=== PATIENT | female | born 1955 | race American Indian/Alaskan Native ===

== ENCOUNTER → 2025-08-19 | Outpatient (CLI) | payer MEDICARE, MEDICAID, SELFPAY ==
--- NOTE | 2025-08-19 16:30 | XR_ITS ---
Examination: CT abdomen and pelvis without contrast. Coronal 3-D reconstructions. Sagittal 2-D reconstructions. Date and time of exam:August 19, 2025, 1633 hrs. Indications: Heartburn and gastroesophageal reflux 10 years, comparison August 07, 2016 CTDI: vol (mGy): 4.32 DLP: (mGycm): 226 Technique: Axial images of the abdomen have been obtained, 3 mm slice thickness Intravenous contrast material has not been administered. Low dose protocols were performed. One or more of the following dose reduction techniques were used; automated exposure control, adjustment of the mA and/or KV according to patient size, use of iterative reconstruction technique. Findings: Pulmonary fibrosis pattern of the lung bases with dilated bronchi in the lower lung zones No visualized liver or splenic lesion Gallbladder is not visualized No pancreatic mass Bilateral renal calculi in the 1 to 4 mm range with severe right moderate left renal scar formation No hydronephrosis or ureteral calculi Aorta normal size No pericecal inflammatory change No bowel obstruction No diverticulitis Urinary bladder wall thickening up to 8 mm Moderate osteopenia Impression: Severe pulmonary fibrosis at the lung bases, please see the CT chest report June 26, 2024 Bibasilar bronchiectasis Bilateral nonobstructing renal calculi Severe right moderate left renal scar formation, no hydronephrosis No CT findings of appendicitis bowel obstruction or diverticulitis Urinary bladder wall thickening up to 8 mm, differential would include cystitis
== END | disposition home or self-care (01) ==
LOC: CCTX 16:16
PROVIDERS: Referring Provider Physician Assistant; Visit Provider Physician Assistant
DX: J84.10 Pulmonary fibrosis, unspecified (principal); J47.9 Bronchiectasis, uncomplicated; N20.0 Calculus of kidney; N28.89 Other specified disorders of kidney and ureter; N32.89 Other specified disorders of bladder
CPT/HCPCS: 74176

== ENCOUNTER → 2025-09-23 | Outpatient (CLI) | payer MEDICARE, MEDICAID, SELFPAY ==
--- NOTE | 2025-09-23 14:20 | XR_ITS ---
Examination: Bone densitometry Date and time of exam: September 23, 2025, 1436 hours INDICATIONS: Menopause age 41 hysterectomy age 50, personal history osteoporosis Technique: Lumbar spine and hip total bone mineralization values of an calculated. Peak reference and age match control results have been displayed. Findings: Lumbar spine total bone mineralization is 1.577 gm/cm2. This is 4.3 standard deviations below peak reference. This is 2.2 standard deviations below age-matched controls. Hip total bone mineralization is 0.403 gm/cm2 This is 4.4 standard deviations below peak reference. This is 3.0 standard deviations below age-matched controls Impression: There is osteoporosis based on lumbar spine measurements. There is osteoporosis based on hip measurements Lumbar mineralization is decreased 11.7% compared with January 01, 2023 Hip mineralization is decreased 19.6% compared with May 31, 2023
== END | disposition home or self-care (01) ==
LOC: CDIM 14:14
PROVIDERS: Referring Provider Physician Assistant; Visit Provider Physician Assistant
DX: M81.0 Age-related osteoporosis without current pathological fracture (principal)
CPT/HCPCS: 77080

== ENCOUNTER 2025-11-09 02:39 | Inpatient (IN) | payer MEDICARE, MEDICAID, SELFPAY ==
[2025-11-09] VITALS (14 sets, daily range): BP systolic 90–169; BP diastolic 53–98; PULSE 72–113; RESP 16–26; TEMP 36.1–36.8; O2SAT 95–100; BMI 12.4
--- NOTE | 2025-11-09 | XR_ITS ---
MRI abdomen, without contrast. MRCP Date and time of exam: November 09, 2025, 1026 hours INDICATIONS: Abdominal pain shortness of breath this week, prominent extrahepatic biliary tract dilatation on CT examination abdomen pelvis November 09, 2025 0447 hours Technique: Multiple axial and coronal images of the abdomen have been obtained with the Siemens 1.5T MRI scanner. Images obtained included T1 weighted transverse images, T2-weighted transverse images, T2-weighted transverse images fat-suppressed, T2 weighted haste fat suppressed transverse images, T1 weighted images, in and out of phase images, T2-weighted coronal images, breath hold, T2 weighted haze coronal images as well as T2 weighted coronal thick slab images, MRCP. Findings: No focal liver lesions Absent gallbladder Common hepatic duct 11 mm, no common hepatic or common bile duct stones Pancreatic duct is not dilated, no pancreatic mass No hydronephrosis No ascites Aorta normal size IMPRESSION: Common hepatic duct 11 mm, but no common hepatic or common bile duct stones
--- NOTE | 2025-11-09 02:43 | EDNOTE_ITS ---
ED Abdominal Pain RME/HPI General Chief Complaint: Abdominal Pain Stated complaint: abd pain Time seen by provider: 11/09/25 03:07 Arrival date/time: 11/09/25 02:39 RME / HPI RME / HPI narrative: See [facility] for Dr. Campa's HPI documentation. Related Data Home Medications ?Medication ?Instructions ?Recorded ?Confirmed Tiotropium [place] * (SPIRIVA *) 1 cap inhalation QDAY #0 puffs 12/18/16 albuterol sulfate 90 mcg/actuation 90 mcg IH Q6HR PRN WHEEZING ##0 12/19/16 breath activated powder inhaler (ProAir RespiClick) Hydrocodone/Acetaminophen * (NORCO 1 tab PO Q6H PRN PA IN #0 tabs 06/25/17 10/325 *) carisoprodol 350 mg tablet 350 mg PO TID PRN MUSCLE SP ASMS #0 06/25/17 tabs nifedipine 30 mg tablet,extended 30 mg PO QDAY #0 tabs 06/25/17 release 24 hr (Procardia XL) folic acid 1 mg tablet 1 mg PO QDAY #0 tabs 7 Allergies Allergy/AdvReac Type Severity Reaction Status Date / Time No Known Allergies Allergy Verified 10/21/18 09:37 Review of Systems Review of Systems Systems Reviewed: All systems reviewed, normal except as documented Past Medical History Past Medical History CARDIAC: Negative Congestive Heart Failure RESPIRATORY: Negative Chronic Obstructive Pulmonary Disease (COPD) GENITOURINARY: Negative Renal Disease ENDOCRINE: Positive Endocrine Disorders (SCLERODERMA); Negative Diabetes Mellitus Type 1 or Diabetes Mellitus Type 2 Social History SMOKING STATUS: Never smoker ED Exam Narrative Physical exam: See [facility] for Dr. Campa's physical exam documentation. Course Quality Measures none Orders Category Date Time Status Bedside COVID-19 Antigen Test NOW Care 11/09/25 03:12 Active Bedside Influenza A&B Antigen Test NOW Care 11/09/25 03:[address] Screening NOW Care 11/09/25 03:13 Active EKG (ED ONLY) *Do not use* NOW Care 11/09/25 02:51 Completed Saline [Insert IV] NOW Care 11/09/25 03:12 Active Straight [In and Out Catheter] X1 Care 11/09/25 03:[address] abdomen pelvis w con Stat Exams 11/09/25 03:[address] angio chest Stat Exams 11/09/25 03:14 Ordered EKG (ED Only) Stat Exams 11/09/25 02:51 Draft XR chest 1V portable Stat Exams 11/09/25 03:13 Taken Alcohol, Blood Medical Stat Lab 11/09/25 03:20 Completed Amylase Stat Lab 11/09/25 03:20 Completed BNP [B-Type Natriuretic Peptide] Stat Lab 11/09/25 03:20 Completed Beta Hydroxybutyrate Stat Lab 11/09/25 03:20 Completed Bilirubin,Direct Stat Lab 11/09/25 03:20 Completed Blood Culture (Lab) Stat Lab 11/09/25 04:00 Received CBC Stat Lab 11/09/25 03:20 Completed CK [Creatine Kinase] Stat Lab 11/09/25 03:20 Completed CMP [Comprehensive Metabolic Panel] Stat Lab 11/09/25 03:20 Completed CRP [C-Reactive Protein] Stat Lab 11/09/25 03:20 Completed D-Dimer Stat Lab 11/09/25 03:20 Completed Drug Screen,Urine Stat Lab 11/09/25 03:15 Ordered ESR [Sed Rate (ESR)] Stat Lab 11/09/25 03:20 Completed Hemoglobin A1C [Glycohemoglobin w (eAG)] Stat Lab 11/09/25 03:20 Completed Lactate (Lactic Acid) Stat Lab 11/09/25 03:20 Completed Lipase Stat Lab 11/09/25 03:20 Completed Magnesium Stat Lab 11/09/25 03:20 Completed Procalcitonin Stat Lab 11/09/25 03:20 Completed TSH [Thyroid Stimulating Hormone] Stat Lab 11/09/25 03:20 Completed Troponin I Stat Lab 11/09/25 03:20 Completed UA, C/S IF [Urinalysis, C/S if Indicated] Stat Lab 11/09/25 03:15 Ordered VBG [Venous Blood Gas] Stat Lab 11/09/25 03:20 Completed Metoprolol Tartrate [Lopressor] Med 11/09/25 04:25 Discontinued 12.5 mg PO X1 ONE Morphine* Inj Med 11/09/25 03:12 Discontinued 2 mg IV X1 ONE Ondansetron Inj [Zofran Inj] Med 11/09/25 03:12 Discontinued 4 mg IVP X1 ONE Vital Signs Vital signs: Vital Signs Temperature 98.2 F 11/09/25 02:51 Pulse Rate 113 H 11/09/25 02:51 Respiratory Rate 26 H 11/09/25 02:51 Blood Pressure 129/75 11/09/25 02:51 Pulse Oximetry (%) 95 11/09/25 02:51 Oxygen Delivery Method Room Air 11/09/25 02:51 Abdominal Pain MDM MDM Narrative MDM Narrative:: This section includes all my notes and documentations, including HPI, PE, and ED course. Jose Juan Campa MD HPI: 70-year-old female BIBA from home with abdominal pain. Has trouble localizing the pain and describing the onset. Has trouble describing the quality and quantity of the pain. Uncertain of exacerbating factors or relieving factors. Reports no vomiting or diarrhea. Believes she had appendectomy and cholecystectomy and hysterectomy. Reports anorexia and weight loss, uncertain of onset. No obvious fever. No other complaints. ROS: All negative except as documented in HPI. Physical Exam: General: Alert and oriented. Severely emaciated. Eyes: Conjunctivae and lids clear. ENT: No nasal congestion. Neck: Supple. Heart: Tachycardia with regular rhythm. Lungs: No respiratory distress. Decreased air movement noted with rails. Abdomen: Soft with equivocal tenderness. Normal bowel sounds. No distension. No rebound or guarding. Back: No CVA tenderness. Skin: Warm and dry. Neuro: Alert and oriented X 3. I reviewed EMS notes. I ordered IVF, Zofran 4 mg IV, morphine 2 mg IV, oral metoprolol 12.5 mg, and diagnostic tests. At 6 AM on 11/09/2025, the care of the patient was transferred to Dr. Hratley. Jose Juan Campa MD Patient data External records reviewed:: [facility] previous records (Per chart review, patient was seen here on 03/16/23 for alcohol intoxication.) and EMS form Clinical information provided by:: patient Social determinants that could affect healthcare access:: none Patient has the following chronic illnesses:: none How is presenting disease/condition affected by chronic disease/condition?: no chronic disease Evaluation data The following diagnostics were reviewed and interpreted by me:: lab results, radiology exam(s) and EKG tracing(s) (My interpretation of the EKG is: Sinus tachycardia (113 bpm) with nonspecific ST-T changes. Jose Juan Campa MD) Lab and/or radiology exams considered but not ordered:: none Interpretation Summary: Complete diagnostic tests are pending. Medications / Prescriptions Medications or Prescriptions considered but not ordered:: none Medication administrations:: Medication Administration History Discontinued Medications Metoprolol Tartrate (Metoprolol Tartrate 25 Mg Tablet) 12.5 mg PO X1 ONE Stop: 11/09/25 04:26 Last Admin: 11/09/25 05:14 Dose: 12.5 mg Documented By: PINOR Morphine Sulfate (Morphine Sulf Inj 4 Mg/Ml Vial) 2 mg IV X1 ONE Stop: 11/09/25 03:13 Last Admin: 11/09/25 03:38 Dose: 2 mg Documented By: SHAYYOR Ondansetron HCl (Ondansetron Inj 2 Mg/Ml Inj 2 Ml) 4 mg IVP X1 ONE; Protocol Stop: 11/09/25 03:13 Last Admin: 11/09/25 03:38 Dose: 4 mg Documented By: JANE I ordered IVF, Zofran 4 mg IV, morphine 2 mg IV, oral metoprolol 12.5 mg, and diagnostic tests. Consultations Consultation(s) initiated? (list below): No Diagnosis Differential diagnosis abdominal pain: acute appendicitis, calculus of kidney, constipation, diverticulitis, endometriosis, gastroenteritis, pancreatitis and small bowel obstruction Most likely diagnosis given after review of the tests above:: Complete diagnostic tests are pending. Admission Indicated Admission indicated?: not indicated Explain why admission is indicated or not indicated:: Complete diagnostic tests are pending. Admission Request Was there a request for admission?: No Disposition Plan Disposition Plan: other (specify) (At 6 AM on 11/09/2025, the care of the patient was transferred to Dr. Hartley.) Discharge Plan Prescriptions/Referrals Prescriptions/Med Rec: No Action Tiotropium [place] * (SPIRIVA *) 18 MCG CAP.W.DEV 1 cap Inhalation QDAY Qty: 0 albuterol sulfate [ProAir RespiClick] 90 MCG aerosol powdr breath activated 90 mcg IH Q6HR PRN (Reason: WHEEZING) Qty: 0 carisoprodol 350 MG tablet 350 mg PO TID PRN (Reason: MUSCLE SPASMS) Qty: 0 nifedipine [Procardia XL] 30 MG/BOTTLE tablet extended release 24 hr 30 mg PO QDAY Qty: 0 Hydrocodone/Acetaminophen * (NORCO 10/325 *) 1 TAB tablet 1 tab PO Q6H PRN (Reason: PAIN) Qty: 0 folic acid 1 MG tablet 1 mg PO QDAY Qty: 0 Problem List Clinical Impression: Abdominal pain Patient/Caregiver Discharge Instructions Print Language: Chadian
--- NOTE | 2025-11-09 02:51 | EKG_ITS ---
[facility] Test Date: 2025-11-09 Pat Name: EDDIE ACOSTA Department: Room: - Gender: Female [employer]ician: : [id number] Requested By: Jose Juan Villalobos Order Number: [id number] Reading MD: Jose Juan Villalobos Measurements Intervals [place] Rate: 113 P: 47 SD: 115 QRS: 5 QRSD: 74 T: 42 QT: 297 QTc: 407 Interpretive Statements SINUS TACHYCARDIA WITH SHORT SD INTERVAL ABNORMAL RHYTHM ECG Compared to ECG 10/21/2018 09:48:14 Sinus rhythm no longer present /store/S0/[id number].pdf
--- NOTE | 2025-11-09 03:13 | XR_ITS ---
Examination: CT abdomen with intravenous contrast CT pelvis with intravenous contrast 2-D coronal reconstructions 2-D sagittal reconstructions Date and time of exam: November 09, 2025, 0447 hours, comparison August 19, 2025 INDICATION: Shortness of breath abdominal pain pararectal pain today, history kidney stones. CTDI: vol (mGy) 3.93 DLP: (mGycm) 194 Technique: Multiple axial sections of the abdomen and pelvis have been obtained. 64 slice high-resolution scanner used. 3 mm axial sections have been obtained, post intravenous injection 70 cc Isovue-370 2-D sagittal, coronal reconstructions obtained. Low dose protocols were performed. One or more of the following dose reduction techniques were used; automated exposure control, adjustment of the mA and/or KV according to patient size, use of iterative reconstruction technique. Findings: Severe pulmonary fibrosis pattern Retrocardiac gastric hernia Mucosal thickening involving the stomach Intrahepatic biliary tract dilatation Absent gallbladder However, extrahepatic prominent biliary tract dilatation 15 mm Spleen not enlarged No pancreatic mass Severe scarring right kidney Heavy abdominal aortic calcification Distended small bowel loops in the right abdomen Large amounts of stool in the rectosigmoid rectum with marked thickening of the rectal wall, axial image 190, measuring up to 19 mm Contracted urinary bladder Severe osteopenia IMPRESSION: Severe pulmonary fibrosis Gastritis pattern Abnormal extrahepatic biliary tract dilatation, consider MRCP follow-up Marked abnormal thickening of the rectal wall, measuring up to 19 mm, abundant stool in the rectosigmoid, differential would include early rectal tumor, recommend direct inspection
--- NOTE | 2025-11-09 03:13 | XR_ITS ---
AP upright portable chest film 11/09/2025 at 3:29 a.m. CLINICAL HISTORY: Shortness of breath Comparison study 03/16/2023 FINDINGS: 1. This patient has had longstanding very extensive patchy interstitial disease throughout both lungs, left much more prominently than on the right. On today's film these chronic patchy interstitial infiltrates have increased very significantly in the left lung, and they have also increased significantly in the basal segments of the right lower lobe, seen through the apex of the hemidiaphragm. There is mild but definite pleural thickening in the minor fissure and lateral costophrenic sulcus on the right, these are also new findings. Considering the portable AP film technique the heart size is probably within normal limits. There is mild scoliosis of the dorsal spine convexity to the right at IMPRESSION: 1. This patient has longstanding very extensive patchy interstitial lung disease, of uncertain etiology. 2. This has increased in severity definitely since the previous film of 03/16/2023. This interstitial lung disease was present on a film of 07/28/2012, although at that point in time it was much less severe and only involve the basal segments of both lower lobes.
--- NOTE | 2025-11-09 03:14 | XR_ITS ---
Examination: CTA chest with intravenous contrast 2-D reconstructions 3-D reconstructions, vascular Date and time of exam: November 09, 2025, 0447 hours, comparison June 26, 2024 INDICATIONS: Shortness of breath tachypnea tachycardia hypoxia today CTDI: vol (mGy) 4.54 DLP: (mGycm) 159 Technique: Multiple axial sections of the thorax have been obtained. 3 mm slice thickness, from below the hemidiaphragms to above the apices of the lungs. Mediastinal and lung density settings have been obtained. 2-D sagittal and coronal reconstructions. 3-D angiographic renderings, 3-D volume renderings, 3D post processing, vascular maximum intensity projections obtained. Contrast administered is 70 cc Isovue-370. Low dose protocols were performed. One or more of the following dose reduction techniques were used; automated exposure control, adjustment of the mA and/or KV according to patient size, use of iterative reconstruction technique. Findings: No thoracic aortic aneurysm dilatation Pulmonary artery segments mildly enlarged No pulmonary artery emboli Diffuse pulmonary fibrosis Suspicious for superimposed pneumonia at the lung bases No visualized liver or splenic lesion No pancreatic mass Absent gallbladder Common hepatic duct 12 mm no definite stones Significant scarring right kidney No hydronephrosis Moderate osteopenia IMPRESSION: Negative for pulmonary artery emboli Significant diffuse pulmonary fibrosis Superimposed pneumonia at the lung bases
[2025-11-09 03:35] LABS: Lactate (Lactic Acid) 1.8 mMol/L (0.4-2.0)
[2025-11-09] MEDS: MORPHINE SULF INJ 4 MG/ML VIAL 2 MG IV (03:38)
[2025-11-09] MEDS: ONDANSETRON INJ 2 MG/ML INJ 2 ML 4 MG IVP ×2 (03:38→09:40)
[2025-11-09 03:46] LABS: Sed Rate (ESR) 59 mm/hr (0-30)
[2025-11-09 03:47] LABS: Basophils # (Auto) 0.0 Thou/mm3 (0.0-0.2); Basophils % (Auto) 0 % (0-2.5); Eosinophils # (Auto) 0.0 Thou/mm3 (0.0-0.5); Eosinophils % (Auto) 0 % (0-10); Hematocrit 43.1 % (36.0-46.0); Hemoglobin 13.9 g/dL (12.0-16.0); Immature Granulocytes Auto 0.03 Thou/mm3 (0.00-0.00); Lymphocytes # (Auto) 1.3 Thou/mm3 (1.0-4.8); Lymphocytes % (Auto) 17 % (10-50); Mean Corpuscular HGB Conc 32.3 g/dl (31.0-37.0); Mean Corpuscular Hemoglobin 32.4 pg (25.0-35.0); Mean Corpuscular Volume 101 fL (80-100); Monocytes # (Auto) 0.4 Thou/mm3 (0.0-0.8); Monocytes % (Auto) 5 % (0-12); Neutrophils # (Auto) 6.2 Thou/mm3 (1.8-7.7); Neutrophils % (Auto) 78 % (37-80); Nucleated Red Blood Cell # 0.00 Thou/mm3 (0.00-0.00); Nucleated Red Blood Cell % 0 /100 WBC (0); Platelet Count 190 Thou/mm3 (140-440); RDW Standard Deviation 49.1 fL (36.4-46.3); Red Blood Count 4.29 Miln/mm3 (4.00-5.20); White Blood Count 7.9 Thou/mm3 (3.6-11.0)
[2025-11-09 03:54] LABS: Base Excess, Venous 13 (-3-3); O2 Saturation, Venous 62 % (96-97); PCO2, Venous 76 mmHg (36-56); PO2, Venous 34 mmHg (15-58); pH, Venous 7.36 (7.33-7.66)
[2025-11-09 03:57] LABS: Glucose Estimated Average 103 mg/dL (80-131); Hemoglobin A1C 5.2 % Hgb (4.8-6.0)
[2025-11-09 04:00] LABS: Beta Hydroxybutyrate 1.1 mmol/L (<0.6); D-Dimer < 250 ng/mL (<600)
[2025-11-09 04:06] LABS: B-Type Natriuretic Peptide 31 pg/mL (0-100)
[2025-11-09 04:09] LABS: Alanine Aminotransferase 15 U/L (10-49); Albumin, Serum 4.0 gm/dL (3.4-4.8); Albumin/Globulin Ratio 0.9 (1.2-2.2); Alcohol, Blood Medical < 3.0 mg/dL (0-10.0); Alkaline Phosphatase 47 U/L (46-116); Amylase 95 U/L (30-118); Anion Gap 9 (7-16); Aspartate Amino Transferase 27 U/L (0-34); BUN/Creatinine Ratio 22 Ratio (12-20); Bilirubin,Direct 0.2 mg/dL (0.0-0.3); Bilirubin,Total 0.5 mg/dL (0.3-1.2); Blood Urea Nitrogen 13 mg/dL (9-23); C-Reactive Protein < 0.5 mg/dL (0.0-0.9); Calcium 9.7 mg/dL (8.3-10.6); Calcium (Corrected) 9.7 mg/dL (8.5-10.1); Carbon Dioxide 38.9 mMol/L (20.0-31.0); Chloride 94 mMol/L (98-107); Creatine Kinase 26 U/L (34-171); Creatinine (Component) 0.6 mg/dL (0.6-1.3); Estimated Creatinine Clearance 44.6 mL/min (>60); Globulin 4.4 gm/dL (2.3-3.5); Glucose 105 mg/dL (74-106); Lipase 59 U/L (12-53); Magnesium 1.8 mg/dL (1.6-2.6); Osmolality,Calculated 283 (275-295); Potassium 4.0 mMol/L (3.4-5.1); Procalcitonin 0.09 ng/ml (0.0-0.49); Sodium 142 mMol/L (136-145); Thyroid Stimulating Hormone 2.06 uIU/mL (0.55-4.78); Total Protein 8.4 gm/dL (5.7-8.2); Troponin I < 0.020 ng/mL (0.0-0.045); eGFR > 60 See Note
[2025-11-09] MEDS: METOPROLOL TARTRATE 25 MG TABLET 12.5 MG PO (05:14)
--- NOTE | 2025-11-09 05:36 | PRELIM_ITS ---
CT angiogram of the chest aorta with intravenous contrast (axial sections with sagittal and coronal reformats). November 09, 2025 at 0447 hours Clinical History: Shortness of breath, tachycardia tachypnea. Comparison: No prior study is available for comparison. Findings: There is no filling defect in the pulmonary artery divisions to suggest pulmonary thromboembolism. No pericardial effusion is seen. No pleural effusion. The heart size is normal. Main pulmonary artery caliber is normal. There is no mediastinal, hilar or axillary adenopathy. No aortic aneurysm or dissection. No pneumothorax. No acute osseous process. The chest wall is unremarkable. Bilateral pulmonary interstitial fibrosis. Patchy pulmonary interstitial infiltrates, most prominent in the lung bases. Cortical scarring in the right kidney. Impression: 1. No evidence of pulmonary thromboembolism. 2. Bilateral interstitial pulmonary fibrosis. 3. Bilateral pulmonary infiltrates, which may represent acute phase pulmonary fibrosis versus infectious pneumonia. Report Electronically Signed By: Jose Hernandez 11/09/2025 5:35:31 AM [EST]
--- NOTE | 2025-11-09 05:43 | PRELIM_ITS ---
CT scan of the abdomen and pelvis with intravenous contrast (axial sections with sagittal and coronal reformats). November 09, 2025 at 0447 hours Clinical History: Abdominal pain and right perirectal pain! Comparison: No prior study is available for comparison. Findings: Prominent intra and extrahepatic biliary duct dilatation. Common bile duct is 1.4 cm in diameter. Gallbladder is not visualized. Cortical scarring in bilateral kidneys. Spleen, pancreas and adrenal glands are normal. There are distended small bowel loops in the right abdomen. Prominent colonic stool. P ossible gastric wall thickening. There is atherosclerotic calcification of the aorta without aneurysm or dissection. The rectum is distended with stool, 6 to 7 cm in diameter. No acute osseous process. No free intraperitoneal air or fluid. There is no adnexal cyst or mass. The appendix is not visualized; however, there is no evidence of inflammatory process in the right lower quadrant to suggest appendicitis. Impression: 1. Constipation and rectal fecal impaction. 2. Distended right lower quadrant small bowel, may represent ileus or obstruction. 3. Possible gastritis. 4. Intra and extrahepatic biliary duct dilatation, greater than expected postcholecystectomy. Consider MRCP. 5. No perirectal lesion. Report Electronically Signed By: Jose Hernandez 11/09/2025 5:42:41 AM [EST]
[2025-11-09 06:02] LABS: Collection Type, Urine Clean Catch
[2025-11-09 06:32] LABS: Amorphous Crystals,Urine Present (Absent); Bilirubin,Urine Negative (Negative); Blood,Urine Negative (Negative); Clarity,Urine Clear (Clear/Hazy); Color,Urine Lt-Yellow (Lt Yel-Yel); Culture Indicated,Urine Not Indicated; Glucose, Urine Negative (Negative); Ketones,Urine 2+ (Negative); Leukocyte Esterase,Urine Negative (Negative); Nitrite,Urine Negative (Negative); PH,Urine 6.5 (5.0-7.0); Protein,Urine Trace (Neg - Trace); RBC,Urine 6 /hpf (0-3); Specific Gravity,Urine > 1.035 (1.001-1.035); Squamous Epithelial Cell,Urine < 1 /hpf (0-5); Urobilinogen,Urine Negative mg/dL (0.0-1.0); WBC,Urine 1 /hpf (0-5)
[2025-11-09 06:43] LABS: Amphetamine/Methamp Scrn,U Negative (Negative); Barbiturate Screen,Urine Negative (Negative); Benzodiazepines Screen,Urine Negative (Negative); Benzoylecgonine Screen, Ur Negative (Negative); Fentanyl Screen,Urine Negative (Negative); Opiate Screen,Urine Positive (Negative); THC Screen,Urine Negative (Negative)
[2025-11-09] MEDS: ALBUTEROL RT 2.5 MG/3 ML NEBU INH (08:53)
--- NOTE | 2025-11-09 09:08 | ESHP_ITS ---
<Statement entered by Clair Garcia MD - 11/13/25 12:53> I reviewed above note and agree with findings and plans. I have also personally examined the patient with medicine team and went over assessment and plan with medical team including international manager and resident physician. <Statement entered by Yael Aranda MD - 11/09/25 12:54> In summary: This is a 70-year-old female with past medical history of chronic pulmonary fibrosis on home 2 L NC, scleroderma, fibromyalgia presenting with failure to thrive. Presentation she was tachycardic, normotensive and tachypneic although satting well on baseline 2 L NC. She has compensated respiratory acidosis with pCO2 76, pH 7.36, bicarb 38.9. CBC and CMP relatively benign with mild lipase elevation. BMI significantly low of 12.5. She also complained of chronic, worsening dysphagia, unable to swallow solid oral intake. Her symptoms of failure to thrive likely combination of worsening pulmonary fibrosis given CT findings as well as poor oral intake. CTA was negative for pulm embolism but showed superimposed bibasilar pneumonia. CT abdomen showed gastritis, rectal wall thickening. There is also evidence of CBD dilation on CT abdomen which was followed up with normal MRCP, no stone present and she also has normal LFTs and total bilirubin. GI is on board for evaluation of rectal wall thickening as well as dysphagia. She is currently n.p.o. and pending swallow eval. Registered dietitian on board and we are replating THIAMINE, electrolytes, folate and multivitamins. We have her on maintenance D5W for now. Also treating her pneumonia aggressively with broad-spectrum ANTIBIOTICS. Follow-up cultures. I?ve reviewed the note and agree with this assessment and plan, with the exceptions outlined above. I personally went over the labs, imaging, home medications, and prior records, and examined the patient. The case was also reviewed with the attending physician. Please note: this document was transcribed using voice recognition technology; minor inaccuracies may be present. Yael Aranda DO PGY II Documentation for date of: 11/09/25 HPI History of Present Illness Chief complaint: Abdominal pain History of present illness: Mrs. Kang is a 70 years old female with history of scleroderma, pulmonary fibrosis on 2L NC at home, and fibromyalgia presents for abdominal pain that had been ongoing for the past month. Patient stated she saw her PCP and was in the process of getting a scan of her abdomen before follow up with her PCP again. Patient describes the pain as thrombing, localized to lower abdomen, non- reproducible, and worse with walking. The pain has gotten worse today, which prompted her to come to the ER for evaluation. She denies melena, nausea, vomiting, chill, cough, hemoptysis, chest pain, but does endorse shortness of breath with exertion, and recent weight loss for the past year due to intolerance of food (BMI 12.5) due to a stricture in her stomach . Of note, patient follows up with [facility] every 3-6 months for monitoring of her scleroderma, but denies any active treatment. Patient denies any cancer history, but does have an ovarian cyst removed in 2005, and was reported to be benign. Patient does not recall her last colonoscopy, but was more than 10 years ago. Last bowel movement reported to be this morning and was normal. Denies dysuria, suprapubic tenderness, or CVA tenderness. CT scan in the ED revealed rectal mass, Dr. Brunson was consulted. Patient will be admitted for rectal mass workup. ED Course In the ED, Temp 98.2F, HR 113, RR 26, BP 129/75, 95% RA. WBC 7.9, Hgb 13.9, D- dimer < 250, Na 142, K 4, Bicarb 38.9, Cr 0.6, BUN 13. TSH 2.06. Beta- hydroxybutyrate 1.1. UA specific gravity > 1.035. EKG revealed sinus tach with rate of 113. QTc 407. No acute ST abnormalities. Abdominal CT revealed abnormal extrahepatic biliary tract dilation and marked abnormal thickening of the rectal wall with abundant stool in rectosigmoid colon. CTA Chest negative for pulmonary emboli, but revealed significant diffuse pulmonary fibrosis with superimposed pneumonia. We examined patient's rectum in the ED, sacral ulcer noted, but did not visualize any abnormal mass. ROS * Constitutional: Severely malnutritioned. a/o x 3, denies fever/chills. * GI: Denies nausea, vomiting. * CV: Denies chest pain or palpitations. * Resp: SOB with exertion. * : Denies dysuria, CVA tenderness, suprapubic tenderness. * Neuro: Denies dizziness, no focal deficits. Past Medical History * Scleroderma * Pulmonary fibrosis on 2L * Firbromyalgia Social History * Lives at home, independent baseline. * Denies drug use, alcohol use, or smoking history. Surgical History * Ovarian cyst removal with hysterectomy in 2005 * 4 x c-sections Allergies * NKDA Home Meds * Nifedipine 30mg PO QD. * Sildenafil 40mg PO TID. Exam Vital Signs Temp Pulse Resp BP Pulse Ox O2 Del Method O2 Flow Rate 98.1 F 104 H 20 126/70 100 Nasal Cannula 2 11/09/25 05:01 11/09/25 08:54 11/09/25 08:54 11/09/25 05:14 11/09/25 08:54 11/09/25 05:01 11/09/25 08:54 Narrative Exam General: Alert, oriented, in no acute distress. Severely malnutritioned. BMI 12.5 HEENT: Normocephalic, atraumatic. Oropharynx dry. Neck: Supple, no JVD, no lymphadenopathy or thyroid enlargement. Cardiovascular: Regular rate and rhythm. No murmurs, rubs, or gallops. Respiratory: Fine crackles to all lung zones. Normal respiratory effort. Abdomen: Soft, nontender, nondistended. No masses or organomegaly. Musculoskeletal: Full range of motion in all extremities. No joint swelling, tenderness, or deformities. Skin: Warm, dry, intact. No rashes or lesions. Results: Labs 11/09/25 03:20 11/09/25 03:20 Labs: Short CBC 11/09/25 Range/Units 03:20 WBC 7.9 (3.6-11.0) Thou/mm3 Hgb 13.9 (12.0-16.0) g/dL Hct 43.1 (36.0-46.0) % Plt Count 190 (140-440) Thou/mm3 BMP 11/09/25 03:20 Sodium 142 Potassium 4.0 Chloride 94 L Carbon Dioxide 38.9 H BUN 13 Creatinine 0.6 Glucose 105 Calcium 9.7 Cardiac Enzymes 11/09/25 Range/Units 03:20 Total Creatine Kinase 26 L (34-171) U/L Troponin I < 0.020 (0.0-0.045) ng/mL Liver Function 11/09/25 Range/Units 03:20 Total Bilirubin 0.5 (0.3-1.2) mg/dL Direct Bilirubin 0.2 (0.0-0.3) mg/dL AST 27 (0-34) U/L ALT 15 (10-49) U/L Alkaline Phosphatase 47 (46-116) U/L Albumin 4.0 (3.4-4.8) gm/dL Urine 11/09/25 Range/Units 05:35 Urine Color Lt-Yellow (Lt Yel-Yel) Urine Clarity Clear (Clear/Hazy) Urine pH 6.5 (5.0-7.0) Ur Specific [place] > 1.035 H (1.001-1.035) Urine Protein Trace (Neg - Trace) Urine Glucose (UA) Negative (Negative) ABG Interpretation ABG results: 11/09/25 03:20 VBG pH 7.36 VBG pCO2 76 H VBG pO2 34 VBG Base Excess 13 H Quality Measures Quality Measures none Advance care planning discussed with:: patient Medications Home Medications and Allergies Home Medications ?Medication ?Instructions ?Recorded ?Confirmed ?Type Tiotropium [place] * (SPIRIVA *) 1 cap inhalation QDAY #0 puffs 12/18/16 History albuterol sulfate 90 mcg/actuation 90 mcg IH Q6HR PRN WHEEZING ##0 12/19/16 History breath activated powder inhaler (ProAir RespiClick) Hydrocodone/Acetaminophen * (NORCO 1 tab PO Q6H PRN PA IN #0 tabs 06/25/17 History 10/325 *) carisoprodol 350 mg tablet 350 mg PO TID PRN MUSCLE SP ASMS #0 06/25/17 History tabs nifedipine 30 mg tablet,extended 30 mg PO QDAY #0 tabs 06/25/17 History release 24 hr (Procardia XL) folic acid 1 mg tablet 1 mg PO QDAY #0 tabs 7 History sildenafil (pulm.hypertension) 20 40 mg PO Q8H 5 11/09/25 History mg tablet Allergies Allergy/AdvReac Type Severity Reaction Status Date / Time No Known Allergies Allergy Verified 10/21/18 09:37 Visit Medications Azithromycin 500 mg/ Sodium (Chloride) 250 mls @ 250 mls/hr IV QDAY KRISTEN Stop: 11/16/25 08:34 Discontinued Medications Albuterol (Albuterol Rt 2.5 Mg/3 Ml Nebu) 2.5 mg INH X1 ONE Stop: 11/09/25 08:40 Last Admin: 11/09/25 08:53 Dose: 2.5 mg Ceftriaxone Sodium 2 gm/ (Sodium Chloride) 50 mls @ 100 mls/hr IV X1 ONE Stop: 11/09/25 09:03 Metoprolol Tartrate (Metoprolol Tartrate 25 Mg Tablet) 12.5 mg PO X1 ONE Stop: 11/09/25 04:26 Last Admin: 11/09/25 05:14 Dose: 12.5 mg Morphine Sulfate (Morphine Sulf Inj 4 Mg/Ml Vial) 2 mg IV X1 ONE Stop: 11/09/25 03:13 Last Admin: 11/09/25 03:38 Dose: 2 mg Morphine Sulfate (Morphine Sulf Inj 4 Mg/Ml Vial) 4 mg IVP X1 ONE Stop: 11/09/25 08:30 Ondansetron HCl (Ondansetron Inj 2 Mg/Ml Inj 2 Ml) 4 mg IVP X1 ONE; Protocol Stop: 11/09/25 03:13 Last Admin: 11/09/25 03:38 Dose: 4 mg Ondansetron HCl (Ondansetron Inj 2 Mg/Ml Inj 2 Ml) 4 mg IVP X1 ONE; Protocol Stop: 11/09/25 08:30 Assessment & Plan Plan Mrs. Kang is a 70 years old female with history of scleroderma, pulmonary fibrosis on 2L NC at home, and fibromyalgia presents for abdominal pain that had been ongoing for the past month. She had recent weight loss for the past year due to intolerance of food (BMI 12.5). In the ED, CT scan revealed marked abnormal thickening of the rectal wall. GI was consulted, suggested admission for further workup. #Failure to thrive #Underweight (BMI 12.5) #Body mass index 19.9 or less #Malnutrition Significant weight loss per patient this past year due to food intolerance, likely due to esophageal stricture from scleroderma vs. suspected rectal cancer. - Medical Assistant Cardiology consulted, appreciate recs - D5W @ rate of 80ml/hr - Bedside swallow eval, if passed, may resume diet + Ensure protein - Folate 1mg QD - Thiamine 100mg QD - Multivitamin 15ml liquid QD. #Rectal mass #Abnormal thickening of rectal wall Incidental finding noted on CT abdomen/pelvis on 11/09/25. Marked abnormal thickening of the rectal wall, measuring up to 19 mm, concerning for early rectal tumor in light of recent weight loss. Direct inspection in the ED did not reveal any abnormal mass near rectum. Last reported bowel movement 11/09/25. - GI consulted, appreciate recs. - Pending CEA and CA 19-9 #Community acquired pneumonia vs Aspiration pneumonia Chest CTA on admission revealed superimposed pneumonia at the lung bases. WBC 7.9 on admission. - Pending Bcx - oxygen as needed - Continue Zosyn and vanco (11/09~ #Abnormal extrahepatic biliary tract dilation Incidental finding noted on CT abdomen/pelvis on 11/09/25. T. Bili 0.5. - MRCP showed common hepatic duct 11 mm, but no common hepatic or common bile duct stones. #Scleroderma #Pulmonary fibrosis #Pulmonary hypertension #Hypertension Chronic medical problems. Patient follows with [facility] for management - Outpatient management - Albuterol Q6H PRN - Continue home Nifedipine 30mg PO QD. - Sildenafil 40mg PO TID, resume after med recs - restart home meds pending med rec. #Firbomyalgia #Chronic pain syndrome Chronic medical problems - Multimodal pain regimen - [place] 10/325 Q6H PRN #Gastritis Chronic medical problems - Protonix 40mg QD Health maintenance Dispo: Rectal mass workup DVT prophylaxis: HEPARIN GI prophylaxis: Protonix 40 IV QD Antibiotics: Zosyn + Vanco for pneumonia Bowel Regimen: N/A Diet: Regular diet, high calorie and protein. Lines: Peripheral IV Code status: Full code Case discussed with my senior resident Dr. Aranda Case discussed with my attending Dr. Jose Hernandez, DO PGY 1
[2025-11-09] MEDS: MORPHINE SULF INJ 4 MG/ML VIAL IVP (09:40)
[2025-11-09 10:22] LABS: Vitamin B12 1104 pg/mL (211-911)
--- NOTE | 2025-11-09 10:56 | EDNOTE_ITS ---
Emergency Room Addendum Addendum Narrative: 0600: Care assumed from Dr. Campa, the previous shift emergency physician. Past medical, surgical, social and family history reviewed. Vitals and home medications reviewed. I will assume the care of the patient at this time, pending labs, imaging, and final disposition. Please refer to the emergency department record for history and examination from initial visit.?The following addendum documentation note is intended to reflect any pending information, findings, or radiology results not included in the patient?s initial chart. We reviewed all the results, analysis, and treatment plans. Patient is amenable to admission. I spoke with hospitalist team B for admission. Discussed patients PMHx, HPI, ED course, exam findings, labs, and radiology results. The hospitalist agree to accept the patient for admission. RADIOLOGY MRCP report shows Common hepatic duct 11 mm, but no common hepatic or common bile duct stones CT abdomen/pelvis report shows Severe pulmonary fibrosis. Gastritis pattern. Marked abnormal thickening of the rectal wall, measuring up to 19 mm, abundant stool in the rectosigmoid Chest xray shows interstitial lung disease. Chest CTA report shows Negative for pulmonary artery emboli. Significant diffuse pulmonary fibrosis. Superimposed pneumonia at the lung bases
[2025-11-09] MEDS: NAPH,KPH MBDB 1 PACKET (1.5 GM) PO (12:32)
[2025-11-09] MEDS: MULTIVITAMIN 15 ML UDC PO (12:32)
[2025-11-09] MEDS: THIAMINE INJ 100 MG/ML VIAL 2 ML IVP (12:32)
[2025-11-09] MEDS: FOLIC ACID INJ 1 MG/0.2 ML IVP (12:35)
[2025-11-09] MEDS: VANCOMYCIN/NS 1 GM IVPB 200 ML IV (12:36)
[2025-11-09] MEDS: DEXTROSE 5%-NS 1,000 ML 80 ML IV (12:36)
[2025-11-09 14:20] LABS: Carcinoembryonic Antigen 1.1 ng/mL (0.0-5.0)
[2025-11-09] MEDS: PIPER/TAZO 3.375 GM PREMIX 3.375 GM/50 ML BAG IV ×2 (15:16→21:05)
[2025-11-09] MEDS: NIFEdipine XL 30 MG TABCR PO (15:16)
--- NOTE | 2025-11-09 16:12 | PC.DIETICIAN ---
Nutrition recommendations: Patient is at significant risk for refeeding syndrome. 1.? Consistent Carb Low, Dys Mech Altered. 2.? Glucerna Shake 120ml BID with lunch and dinner (chocolate). 3.? Continue with: Thiamine 300mg/day for 10 days, and Multivitamins/Minerals. 4.? Daily labs for P, K, and Mg; replace as needed. Patient also meets ASPEN criteria for Severe chronic disease or condition related malnutrition.
--- NOTE | 2025-11-09 17:56 | PD.IMCONS ---
HPI Data of Consult Requesting Physician: Clair Garcia MD [facility] PAAndrea Consult Narrative Reason for consult: Abnormal CT AP, thickening of the rectal wall History of present illness: 70-year-old female admitted with pneumonia of the lung bases on his CTA chest shows severe pulmonary fibrosis negative for PE Patient had a CT scan of the abdomen pelvis with contrast as part of her routine evaluation which showed absent gallbladder gastritis pattern and abnormal thickening of the rectal wall For some reason MRCP was done in the face of normal LFTs and showed CHD to be dilated at 11 mm but no common hepatic duct stones or common bile duct stones absent gallbladder cc:: cc: Clair Garcia MD Review of Systems Review of Systems Systems Reviewed: All systems reviewed, normal except as documented Past Medical History Surgical History OTHER SURGICAL HX: Pulmonary fibrosis Bilateral pneumonia Essential hypertension Meds Home Medications and Allergies Home Medications ?Medication ?Instructions ?Recorded ?Confirmed ?Type albuterol sulfate 90 mcg/actuation 90 mcg IH Q6HR PRN WHEEZING ##0 12/19/16 11/09/25 History breath activated powder inhaler (ProAir RespiClick) Hydrocodone/Acetaminophen * (NORCO 1 tab PO Q6H PRN PAIN #0 tabs 06/25/17 11/09/25 History 10/325 *) carisoprodol 350 mg tablet 350 mg PO TID PRN MUSCLE SPASMS #0 06/25/17 11/09/25 History tabs nifedipine 30 mg tablet,extended 30 mg PO QDAY #0 tabs 06/25/17 11/09/25 History release 24 hr (Procardia XL) folic acid 1 mg tablet 1 mg PO QDAY #0 tabs 09/23/17 11/09/25 History dexlansoprazole 60 mg 60 mg PO QDAY 11/09/25 11/09/25 History capsule,biphase delayed release sildenafil (pulm.hypertension) 20 40 mg PO Q8H 11/09/25 11/09/25 History mg tablet Allergies Allergy/AdvReac Type Severity Reaction Status Date / Time No Known Allergies Allergy Verified 10/21/18 09:37 Exam Vital Signs Temp Pulse Resp BP Pulse Ox O2 Del Method O2 Flow Rate 98.0 F 96 18 168/88 H 99 Nasal Cannula 2 11/09/25 16:37 11/09/25 16:37 11/09/25 16:37 11/09/25 16:37 11/09/25 16:37 11/09/25 16:37 11/09/25 16:37 Constitutional Comments: Chronically ill-appearing Routine Respiratory Exam Comments: Scattered rhonchi Routine Abdominal Exam Comments: Soft nontender Results Labs 11/09/25 03:20 11/09/25 03:20 Labs: Short CBC 11/09/25 Range/Units 03:20 WBC 7.9 (3.6-11.0) Thou/mm3 Hgb 13.9 (12.0-16.0) g/dL Hct 43.1 (36.0-46.0) % Plt Count 190 (140-440) Thou/mm3 BMP 11/09/25 03:20 Sodium 142 Potassium 4.0 Chloride 94 L Carbon Dioxide 38.9 H BUN 13 Creatinine 0.6 Glucose 105 Calcium 9.7 Cardiac Enzymes 11/09/25 Range/Units 03:20 Total Creatine Kinase 26 L (34-171) U/L Troponin I < 0.020 (0.0-0.045) ng/mL Liver Function 11/09/25 Range/Units 03:20 Total Bilirubin 0.5 (0.3-1.2) mg/dL Direct Bilirubin 0.2 (0.0-0.3) mg/dL AST 27 (0-34) U/L ALT 15 (10-49) U/L Alkaline Phosphatase 47 (46-116) U/L Albumin 4.0 (3.4-4.8) gm/dL Urine 11/09/25 Range/Units 05:35 Urine Color Lt-Yellow (Lt Yel-Yel) Urine Clarity Clear (Clear/Hazy) Urine pH 6.5 (5.0-7.0) Ur Specific [place] > 1.035 H (1.001-1.035) Urine Protein Trace (Neg - Trace) Urine Glucose (UA) Negative (Negative) ABG Interpretation ABG results: 11/09/25 03:20 VBG pH 7.36 VBG pCO2 76 H VBG pO2 34 VBG Base Excess 13 H Assessment and Plan Additional Assessment & Plan Additional Plan: # Abnormal CT scan abdomen pelvis with contrast showing thickening of the rectal wall with stool impaction in the rectosigmoid region Plan Once patient clinical condition improves as underlying pneumonia I will reevaluate the patient she is not a good candidate For intravenous moderate sedation order colonoscopy prep I have let the family know I am most likely leaning not to do any invasive procedure at the moment And they understood my reasons Other medical problems include Pulmonary fibrosis Bilateral pneumonia Shortness of breath Thank you very much for the opportunity to participate in care of this patient
[2025-11-09] MEDS: THIAMINE INJ 100 MG/ML VIAL 2 ML 300 MG IVP (21:05)
[2025-11-09] MEDS: HEPARIN SOD INJ 5000 UNIT/ML VIAL SC (21:05)
[2025-11-10] VITALS: BP 112/66; PULSE 80; RESP 12; TEMP 36.1; O2SAT 98
[2025-11-10 01:34] VITALS: BMI 12.4
[2025-11-10 04:00] VITALS: BP 97/65; PULSE 80; PULSE 81; RESP 15; TEMP 36.2; O2SAT 100
[2025-11-10] MEDS: PIPER/TAZO 3.375 GM PREMIX 3.375 GM/50 ML BAG IV (05:24)
[2025-11-10 05:26] LABS: Basophils # (Auto) 0.0 Thou/mm3 (0.0-0.2); Basophils % (Auto) 0 % (0-2.5); Eosinophils # (Auto) 0.0 Thou/mm3 (0.0-0.5); Eosinophils % (Auto) 0 % (0-10); Hematocrit 39.4 % (36.0-46.0); Hemoglobin 12.3 g/dL (12.0-16.0); Immature Granulocytes Auto 0.03 Thou/mm3 (0.00-0.00); Lymphocytes # (Auto) 0.9 Thou/mm3 (1.0-4.8); Lymphocytes % (Auto) 14 % (10-50); Mean Corpuscular HGB Conc 31.2 g/dl (31.0-37.0); Mean Corpuscular Hemoglobin 32.4 pg (25.0-35.0); Mean Corpuscular Volume 104 fL (80-100); Monocytes # (Auto) 0.4 Thou/mm3 (0.0-0.8); Monocytes % (Auto) 7 % (0-12); Neutrophils # (Auto) 5.1 Thou/mm3 (1.8-7.7); Neutrophils % (Auto) 79 % (37-80); Nucleated Red Blood Cell # 0.00 Thou/mm3 (0.00-0.00); Nucleated Red Blood Cell % 0 /100 WBC (0); Platelet Count 160 Thou/mm3 (140-440); RDW Standard Deviation 50.5 fL (36.4-46.3); Red Blood Count 3.80 Miln/mm3 (4.00-5.20); White Blood Count 6.5 Thou/mm3 (3.6-11.0)
[2025-11-10 06:19] LABS: Alanine Aminotransferase 14 U/L (10-49); Albumin, Serum 3.5 gm/dL (3.4-4.8); Albumin/Globulin Ratio 0.9 (1.2-2.2); Alkaline Phosphatase 40 U/L (46-116); Anion Gap 8 (7-16); Aspartate Amino Transferase 22 U/L (0-34); BUN/Creatinine Ratio 25 Ratio (12-20); Bilirubin,Total 0.4 mg/dL (0.3-1.2); Blood Urea Nitrogen 15 mg/dL (9-23); Calcium 9.4 mg/dL (8.3-10.6); Calcium (Corrected) 9.8 mg/dL (8.5-10.1); Carbon Dioxide > 40.0 mMol/L (20.0-31.0); Chloride 94 mMol/L (98-107); Creatinine (Component) 0.6 mg/dL (0.6-1.3); Estimated Creatinine Clearance 44.6 mL/min (>60); Globulin 3.9 gm/dL (2.3-3.5); Glucose 126 mg/dL (74-106); Magnesium 1.8 mg/dL (1.6-2.6); Osmolality,Calculated 285 (275-295); Phosphorous 4.3 mg/dL (2.4-5.1); Potassium 4.3 mMol/L (3.4-5.1); Sodium 142 mMol/L (136-145); Total Protein 7.4 gm/dL (5.7-8.2); eGFR > 60 See Note
[2025-11-10 07:27] VITALS: PULSE 93; RESP 20; O2SAT 100
[2025-11-10 08:00] VITALS: BP 128/70; PULSE 91; PULSE 92; RESP 38; TEMP 36.2; O2SAT 100
[2025-11-10 08:59] LABS: Base Excess, Venous 16 (-3-3); O2 Saturation, Venous 74 % (96-97); PCO2, Venous 81 mmHg (36-56); PO2, Venous 39 mmHg (15-58); pH, Venous 7.35 (7.33-7.66)
[2025-11-10] MEDS: AZITHROMYCIN INJ 500 MG in SODIUM CHLORIDE 0.9% 250 ML 250 ML 250 MG IV (09:17)
[2025-11-10] MEDS: MULTIVITAMIN 15 ML UDC PO (09:21)
[2025-11-10] MEDS: FOLIC ACID INJ 1 MG/0.2 ML IVP (09:22)
[2025-11-10] MEDS: THIAMINE INJ 100 MG/ML VIAL 2 ML 300 MG IVP (09:25)
--- NOTE | 2025-11-10 09:49 | ESDS_ITS ---
<Statement entered by Clair Garcia MD - 11/13/25 12:57> I reviewed above note and agree with findings and plans. I have also personally examined the patient with medicine team and went over assessment and plan with medical team including marketing operations intern and resident physician. <Statement entered by Gavin Plasencia MD - 11/10/25 10:49> I discussed with and supervised the marketing operations intern physician involved in the care of this patient. Patient assessment and plan was discussed with entire medicine team, including my attending. I agree with the assessment and plan as documented by marketing operations intern doctor. Patient care was discussed with my attending physician Dr. Jose Plasencia, PGY-3 Planned Discharge Date 11/10/25 DS: Providers Provider Date of admission: 11/09/25 09:25 Primary care physician: Elizabeth Bond([facility])ELIZA Admitting Provider: Clair Garcia MD Attending Provider on Admission: Clair Garcia MD Consults: 11/09/25 08:38 Consult to Gastroenterology Stat Comment: Consulting Provider: Cyril Brunson 11/09/25 09:43 Referral Registered Dietitian Stat Comment: Attending Provider on DC: Clair Garcia MD Discharging Provider: Julian Hernandez DO Anticipated date of discharge: 11/10/25 DS: Diagnosis Problem List Completed Was Problem List Reviewed/Reconciled?: Yes Hospital Course Hospital Course Hospital course: Mrs. Kang is a 70 years old female with history of scleroderma, pulmonary fibrosis on 2L NC at home, and fibromyalgia presented to the ED on 11/09/25 for abdominal pain that had been ongoing for the past month. Patient stated she saw her PCP and was in the process of getting a scan of her abdomen before follow up with her PCP again. The pain had gotten worse on the morning of presentation, which prompted her to came to the ER for evaluation. She denied melena, nausea, vomiting, chill, cough, hemoptysis, chest pain, but did endorse shortness of breath with exertion consistent with her history of pulmonary fibrosis. She also reported recent weight loss for the past year due to intolerance of food (BMI 12.5.) Of note, patient follows up with [facility] every 3-6 months for monitoring of her scleroderma, but denied any active treatment. In the ED, her CT abdomen revealed marked abnormal thickening of the rectal wall, measuring up to 19 mm, concerning for early rectal cancer. GI was consulted for possible colonoscopy, but patient was not a good candidate for moderate sedation given her lung conditions at this time. Her CEA level was normal on this admission. Given that patient is severely underweight with BMI of 12.5, she was advised to increase oral intake along with multivitamins. Upon further discussion with patient, patient stated she is able to swallow food without difficulty, but just not have much appetite lately. She will be started on DRONABIOL 5 MG twice daily as needed at home for appetite. Palliative care and home health was offered to patient, but she declines these services at this time. Patient is medically and physically stable for discharge for home. All questions and concerns addressed, plan of care discussed with patient, return precautions given. Diagnosis: #Retrocardiac gastric hernia #Failure to thrive #Underweight (BMI 12.5) #Body mass index 19.9 or less #Malnutrition #Rectal mass #Community acquired pneumonia vs Aspiration pneumonia - ruled out #Scleroderma #Pulmonary fibrosis #Pulmonary hypertension #Hypertension #Firbomyalgia #Chronic pain syndrome #Gastritis #Severe osteopenia Discharge Plan: * Follow-up with PCP within 1-2 weeks of discharge. * Please see your PCP to obtain referral for pulmonology as you may benefit from CPAP machine. * Please see your PCP to obtain referral for general surgery for your retrocardiac gastric hernia. * Use DRONABIOL 5 MG twice daily as needed for appetite. * Continue taking medications as prescribed below. * Return to Emergency Room if symptoms persist, worsen, or new symptoms develop. * Continue to take the rest of your medications as prescribed by your primary care physician. Patient has been explained that should any symptoms recur or worsen patient is instructed to return to the Emergency Department. Case discussed with my senior resident Dr. Plasencia Case discussed with my attending Dr.Obad Julian Hernandez, PGY 1 Status at Discharge Overall status at discharge: patient is back to baseline Time Spent with Patient Time attestation: Total time spent providing and/or coordinating discharge services: Time spent: Less than 30 minutes Exam Vital Signs Temp Pulse Resp BP Pulse Ox O2 Del Method O2 Flow Rate 97.1 F 93 20 97/65 100 Nasal Cannula 2 11/10/25 04:00 11/10/25 07:27 11/10/25 07:27 11/10/25 04:00 11/10/25 07:27 11/10/25 04:00 11/10/25 07:27 Narrative Exam General: Alert, oriented, in no acute distress. Severely underweight. BMI 12.5 HEENT: Normocephalic, atraumatic. Oropharynx dry. Neck: Supple, no JVD, no lymphadenopathy or thyroid enlargement. Cardiovascular: Regular rate and rhythm. No murmurs, rubs, or gallops. Respiratory: Fine crackles to all lung zones. Normal respiratory effort. Abdomen: Soft, nontender, nondistended. No masses or organomegaly. Musculoskeletal: Full range of motion in all extremities. No joint swelling, tenderness, or deformities. Skin: Warm, dry, intact. No rashes or lesions. Discharge Plan Plan Patient Disposition: HOME (Self Care) Patient condition on transfer: Stable Care Plan Goals: * Follow-up with PCP within 1-2 weeks of discharge. * Please see your PCP to obtain referral for pulmonology as you may benefit from CPAP machine. * Please see your PCP to obtain referral for general surgery for your retrocardiac gastric hernia. * Use DRONABIOL 5 MG twice daily as needed for appetite. * Continue taking medications as prescribed below. * Return to Emergency Room if symptoms persist, worsen, or new symptoms develop. Prescriptions/Referrals Prescriptions/Med Rec: New dronabinol 5 mg capsule 5 mg PO BID 7 Days Qty: 14 0RF Rx Instructions: administer before lunch and evening meal/dinner Continued ProAir RespiClick 90 MCG aerosol powdr breath activated 90 mcg IH Q6HR PRN (Reason: WHEEZING) Qty: 0 carisoprodol 350 MG tablet 350 mg PO TID PRN (Reason: MUSCLE SPASMS) Qty: 0 nifedipine [Procardia XL] 30 MG/BOTTLE tablet extended release 24 hr 30 mg PO QDAY Qty: 0 Hydrocodone/Acetaminophen * (NORCO 10/325 *) 1 TAB tablet 1 tab PO Q6H PRN (Reason: PAIN) Qty: 0 folic acid 1 MG tablet 1 mg PO QDAY Qty: 0 sildenafil (pulm.hypertension) 20 mg tablet 40 mg PO Q8H Patient Comments: TAKE 2 TABLETS BY MOUTH THREE TIMES DAILY dexlansoprazole 60 mg capsule,biphase delayed releas 60 mg PO QDAY Patient Comments: TAKE 1 CAPSULE BY MOUTH EVERY DAY Referrals: RadhaeRiver),ELIZA Johnson [Primary Care Provider] Patient/Caregiver Discharge Instructions Print Language: Chinese Stand Alone Forms: Mami Award Info., Patient Portal Info Letter Discharge Order Discharge Orders: Discharge (Routine); Ordered 11/10/25 Ordered By: Yael Aranda Quality Discharge Quality Measures none
[2025-11-10] MEDS: HEPARIN SOD INJ 5000 UNIT/ML VIAL SC (09:58)
[2025-11-10 12:00] VITALS: BP 103/58; PULSE 93; PULSE 94; RESP 20; TEMP 36; O2SAT 100
--- NOTE | 2025-11-10 14:00 | PC.NURSE ---
Discharged in stable condition, with all personal belongings, discharge instructions, to private car, via w/c, accompanied by NETWORK/TELECOM ENGINEER and family. IV and telemetry DC'd prior.
[2025-11-16 06:31] LABS: CA 19-9 Antigen* 4 U/mL (<34)
== END 2025-11-10 14:00 | disposition home or self-care (01) | DRG 393 ==
LOC: SERX 06:12 → SERHOLD 09:44 → S2NX 14:49
PROVIDERS: Emergency Medicine; Admitting Provider Internal Medicine; Emergency Provider Family Medicine; PCP Nurse Practitioner Family; Visit Provider Internal Medicine
DX: K45.8 Other specified abdominal hernia without obstruction or gangrene (principal); J18.9 Pneumonia, unspecified organism; Z68.1 Body mass index [BMI] 19.9 or less, adult; E46 Unspecified protein-calorie malnutrition; R62.7 Adult failure to thrive; K29.70 Gastritis, unspecified, without bleeding; G89.4 Chronic pain syndrome; J84.10 Pulmonary fibrosis, unspecified; M34.9 Systemic sclerosis, unspecified; I27.20 Pulmonary hypertension, unspecified; I10 Essential (primary) hypertension; M85.80 Other specified disorders of bone density and structure, unspecified site; K62.9 Disease of anus and rectum, unspecified; M79.7 Fibromyalgia; Z51.5 Encounter for palliative care; K83.8 Other specified diseases of biliary tract
CPT/HCPCS: 36415; 71045; 71275; 74177; 74181; 80053; 80307; 80320; 81001; 82010; 82150; 82248; 82378; 82550; 82607; 82803; 83036; 83605; 83690; 83735; 83880; 84100; 84145; 84443; 84484; 85025; 85379; 85652; 86140; 86301; 87040; 87081; 87502; 87635; 92610; 93005; 94640; 96374; 99284; A4649; J0456; J1644; J2270; J2405; J2470; J2543; J3373; J3411; J3490; J7042; J7050; Q9967; A9270; G0480